=== PATIENT | female | born 1990 | race Two or more races ===

== ENCOUNTER 2021-08-04 14:27 | Outpatient (CLI) | payer OTHER | END 2021-08-04 15:20 | disposition still patient (30) | LOC: NST 14:27 | PROVIDERS: ATTEND Obstetrics & Gynecology Maternal & Fetal Medicine | DX: Z34.83 Encounter for supervision of other normal pregnancy, third trimester (principal) ==

== ENCOUNTER 2021-08-04 15:02 | Inpatient (IN) | payer OTHER ==
[~2021-08-04] VITALS: Ht 167.6 cm; Wt 85.7 kg
--- NOTE | 2021-08-04 15:08 | NUR ---
PTE ALERTA,ESTABLE Y ORIENTADA.ESTA REFIERE QUE DESDE ROSE COMENZO CON EL DOLOR PELVICO.ESTA LA BAJARON DE MATERNIDAD. YA QUE ESTA NO ESTA EN PROCESO DE PARTO
== END 2021-08-09 10:29 | disposition home or self-care (01) | DRG 819 ==
LOC: ER 15:02 → OB/GYN 17:10 → LDR 21:13 → OB/GYN 08-05 09:13
PROVIDERS: Urology; ADMIT Obstetrics & Gynecology Maternal & Fetal Medicine; ATTEND Obstetrics & Gynecology Maternal & Fetal Medicine
PROC: 4A1HXCZ Monitoring of Products of Conception, Cardiac Rate, External Approach (ICD-10-PCS; 2021-08-04)
PROC: BW40ZZZ Ultrasonography of Abdomen (ICD-10-PCS; 2021-08-04)
PROC: 0T768DZ Dilation of Right Ureter with Intraluminal Device, Via Natural or Artificial Opening Endoscopic (ICD-10-PCS; principal; 2021-08-05 11:00)
DX: O26.893 Other specified pregnancy related conditions, third trimester (principal); N20.0 Calculus of kidney; Z3A.32 32 weeks gestation of pregnancy; Z20.822 Contact with and (suspected) exposure to COVID-19

== ENCOUNTER 2021-08-22 13:04 | Outpatient (CLI) | payer OTHER ==
[~2021-08-22 13:04] MED LIST: PEPCID PO; PRENAT PO
== END 2021-08-22 13:05 | disposition home or self-care (01) ==
LOC: SONOGRAMA 13:04
PROVIDERS: ATTEND Urology
DX: R31.1 Benign essential microscopic hematuria (principal)

== ENCOUNTER 2021-08-29 06:05 | Day surgery (SDC) | payer OTHER | END 2021-08-29 17:45 | disposition home or self-care (01) | LOC: CIR.AMB 06:05 | PROVIDERS: ATTEND Urology | DX: O26.893 Other specified pregnancy related conditions, third trimester (principal); N20.1 Calculus of ureter; Z3A.33 33 weeks gestation of pregnancy ==

== ENCOUNTER 2021-09-14 11:51 | Inpatient (IN) | payer OTHER ==
[~2021-09-14] VITALS: Ht 167.6 cm; Wt 90.3 kg
[2021-10-01] MEDS ORDERED: PRENATAL + DHA1 EAC1 PO (07:59)
[2021-10-01] MEDS ORDERED: NIFEDIPINE ER30 M1 (07:59)
[2021-10-01] MEDS ORDERED: PEPCID AC10 MG PO (07:59)
== END 2021-10-01 11:49 | disposition home or self-care (01) | DRG 807 ==
LOC: SURG-SUITE 09-28 12:00 → LDR 09-29 18:46 → OB/GYN 09-29 18:46
PROVIDERS: ADMIT Obstetrics & Gynecology Maternal & Fetal Medicine; ATTEND Obstetrics & Gynecology Maternal & Fetal Medicine
PROC: 10E0XZZ Delivery of Products of Conception, External Approach (ICD-10-PCS; principal; 2021-09-29)
PROC: 0KQM0ZZ Repair Perineum Muscle, Open Approach (ICD-10-PCS; 2021-09-29)
PROC: 4A1HXCZ Monitoring of Products of Conception, Cardiac Rate, External Approach (ICD-10-PCS; 2021-09-29)
PROC: 0W8NXZZ Division of Female Perineum, External Approach (ICD-10-PCS; 2021-09-29)
DX: O70.1 Second degree perineal laceration during delivery (principal); Z37.0 Single live birth; Z3A.40 40 weeks gestation of pregnancy; Z20.822 Contact with and (suspected) exposure to COVID-19

== ENCOUNTER 2022-06-14 09:12 | Day surgery (SDC) | payer OTHER ==
[~2022-06-14] VITALS: Ht 167.6 cm; Wt 81.6 kg
[~2022-06-14 09:12] MED LIST changes: +ALBUTER IH; +G TUSSIN AC LI473 ML PO; +IBU400 MG PO; +NIFEDIPINE ER30 M1; +PEPCID AC10 MG PO; +PRENATAL + DHA1 EAC1 PO; +[UNRECOGNIZED DRUG - OTHER] OP
== END 2022-06-14 23:10 | disposition home or self-care (01) ==
LOC: CIR.AMB 09:12
PROVIDERS: ATTEND Urology
DX: N20.1 Calculus of ureter (principal); N35.82 Other urethral stricture, female; Z20.822 Contact with and (suspected) exposure to COVID-19

== ENCOUNTER 2022-07-26 16:42 | Outpatient (CLI) | payer OTHER | END 2022-07-26 16:43 | disposition home or self-care (01) | LOC: LAB 16:42 | PROVIDERS: ATTEND Urology | DX: N20.1 Calculus of ureter (principal); N13.1 Hydronephrosis with ureteral stricture, not elsewhere classified; N30.00 Acute cystitis without hematuria ==